=== PATIENT | male | born 1960 | race Asian ===

== ENCOUNTER 2021-08-09 09:23 | Emergency (ER) | payer SELFPAY ==
[~2021-08-09] VITALS: Ht 167.6 cm; Wt 56.7 kg
[2021-08-09 10:46] VITALS: BP 151/90
[2021-08-09] MEDS ORDERED: PRED1PAK9 PO (10:49)
[2021-08-09] MEDS ORDERED: ALBU1TAB2 INH (10:59)
== END 2021-08-09 11:04 | disposition home or self-care (01) ==
LOC: ER 09:23
DX: J44.1 Chronic obstructive pulmonary disease with (acute) exacerbation (principal); F17.210 Nicotine dependence, cigarettes, uncomplicated; Z76.0 Encounter for issue of repeat prescription